=== PATIENT | female | born 2000 ===

== ENCOUNTER 2023-08-23 06:20 | Day surgery (SDC) | payer BC, SELFPAY ==
[2023-08-23] VITALS (7 sets, daily range): BP systolic 112–148; BP diastolic 75–93; BMI 24.4
[2023-08-23] MEDS: NORMOSOL-R 1000 IV (07:55)
== END 2023-08-23 12:00 | disposition home or self-care (01) ==
LOC: SDS 06:20
PROVIDERS: ATTENDING PHYSICIAN Otolaryngology
DX: J34.3 Hypertrophy of nasal turbinates (principal); J34.89 Other specified disorders of nose and nasal sinuses
CPT/HCPCS: 30140